=== PATIENT | female | born 1985 | race Caucasian/White ===

== ENCOUNTER 2024-09-12 11:05 | Emergency (ER) | payer BC ==
[2024-09-12 11:28] VITALS: BP 132/77; PULSE 100
[2024-09-12] MEDS: Ketorolac 30 MG/ML SDV IM ONE (11:38)
[2024-09-12] MEDS: Methocarbamol 1,000 MG/10 ML SDV IM ONE (12:15)
== END 2024-09-12 12:26 | disposition home or self-care (01) ==
LOC: KA.ED 11:05
DX: M41.117 Juvenile idiopathic scoliosis, lumbosacral region (principal); M62.838 Other muscle spasm
CPT/HCPCS: 72100; 96372; 99283; 99284; J1885; J2800